=== PATIENT | male | born 1965 | race Caucasian/White ===

== ENCOUNTER → 2017-11-04 | Outpatient (CLI) | payer OTHER ==
[2017-11-07 00:06] LABS: D002-IGE D FARINAE MITE 0.17 kU/L (Class 0/I); E001-IGE CAT EPITHELIUM/DANDER <0.10 kU/L (Class 0); E005-IGE DOG DANDER/HAIR/EPITH <0.10 kU/L (Class 0); E070-IGE GOOSE FEATHERS <0.10 kU/L (Class 0); F088-IGE LAMB 0.13 kU/L (Class 0/I); G001-IgE Sweet Vernal <0.10 kU/L (Class 0); G003-IGE ORCHARD GRASS <0.10 kU/L (Class 0); G006-IGE TIMOTHY GRASS <0.10 kU/L (Class 0); G008-IGE BLUEGRASS, KENTUCKY <0.10 kU/L (Class 0); M002-IGE CLADOSPORIUM herbarum <0.10 kU/L (Class 0); M003-IGE ASPERGILLUS fumigatus <0.10 kU/L (Class 0); M003-IGE D pteronyssinus 0.12 kU/L (Class 0/I); M006-IGE ALTERNARIA alternata <0.10 kU/L (Class 0); MOO5-IGE CANDIDA albican 1.18 kU/L (Class II); T001-IGE MAPLE/BOX ELDER <0.10 kU/L (Class 0); T003-IGE COMMON SILVER BIRCH <0.10 kU/L (Class 0); T005-IGE BEECH (AMERICAN) <0.10 kU/L (Class 0); T007-IGE OAK, WHITE <0.10 kU/L (Class 0); T012-IGE WILLOW <0.10 kU/L (Class 0); T014-IGE COTTONWOOD <0.10 kU/L (Class 0); W003-IGE RAGWEED, GIANT <0.10 kU/L (Class 0); W008-IgE DANDELION <0.10 kU/L (Class 0); W009-IGE PLANTAIN,ENGLISH <0.10 kU/L (Class 0); W012-IGE GOLDENROD <0.10 kU/L (Class 0); W013-IgE COCKLEBUR <0.10 kU/L (Class 0)
== END ==
LOC: M LAB 10:46
DX: J30.9 Allergic rhinitis, unspecified (principal)
CPT/HCPCS: 82785

== ENCOUNTER 2018-05-10 14:05 | Emergency (ER) | payer OTHER ==
[~2018-05-10] VITALS: Ht 185.4 cm; Wt 84.1 kg
[~2018-05-10 14:05] MED LIST: ASPI81TA85 PO; COLA50CA3 PO; FLAG500T PO; FLUTISP; PERC7.5T12 PO
[2018-05-10 14:55] LABS: INFLUENZA A AMPLIFICATION POSITIVE (NEGATIVE); INFLUENZA B AMPLIFICATION NEGATIVE (NEGATIVE)
[2018-05-10] MEDS ORDERED: OSEL75CA PO (16:28)
[2018-05-10] MEDS ORDERED: ONDA4TAB6 PO (16:28)
[2018-05-10] MEDS ORDERED: ONDANSETRON 4 MG ORAL DISINTEGRATING TAB (Q0162 PER 1MG) PO ONE (16:30)
[2018-05-10] MEDS ORDERED: ACETAMINOPHEN 325 MG TAB PO ONE (16:30)
[2018-05-10 16:35] VITALS: BP 158/80
== END 2018-05-10 16:39 | disposition home or self-care (01) ==
LOC: M ED 14:05
DX: J09.X2 Influenza due to identified novel influenza A virus with other respiratory manifestations (principal); F41.9 Anxiety disorder, unspecified; F32.9 Major depressive disorder, single episode, unspecified; M19.90 Unspecified osteoarthritis, unspecified site; Z88.8 Allergy status to other drugs, medicaments and biological substances; Z91.030 Bee allergy status; Z79.899 Other long term (current) drug therapy
CPT/HCPCS: 87502; 99283; Q0162

== ENCOUNTER 2020-11-23 23:55 | Emergency (ER) | payer OTHER ==
[~2020-11-23] VITALS: Ht 182.9 cm; Wt 105.7 kg
[~2020-11-23 23:55] MED LIST changes: +FLUT1SPR2; -FLUTISP; +ONDA4TAB6 PO; +OSEL75CA PO
[2020-11-24] MEDS ORDERED: ACET-683 PO (00:21)
[2020-11-24 01:08] LABS: HEMATOCRIT 44.1 % (42.0-52.0); HEMOGLOBIN 14.8 g/dl (13.5-17.5); MEAN CORPUSCULAR HEMOGLOBIN 30.1 pg (27.0-33.0); MEAN CORPUSCULAR HGB CONC 33.6 g/dl (32.0-36.5); MEAN CORPUSCULAR VOLUME 89.6 fl (80.0-96.0); PLATELET COUNT, AUTOMATED 268 10^3/uL (150-450); RED BLOOD COUNT 4.92 10^6/uL (4.30-6.10); WHITE BLOOD COUNT 10.8 10^3/uL (4.0-10.0)
[2020-11-24 02:16] LABS: ACETAMINOPHEN LEVEL < 2.0 UG/ML (10.0-30.0); ALBUMIN 4.2 GM/DL (3.2-5.2); ALT/SGPT 41 U/L (12-78); BILIRUBIN,DIRECT 0.2 MG/DL (0.0-0.2); BLOOD UREA NITROGEN 12 MG/DL (7-18); CALCIUM LEVEL 9.1 MG/DL (8.5-10.1); CARBON DIOXIDE LEVEL 30 MEQ/L (21-32); CHLORIDE LEVEL 100 MEQ/L (98-107); CREATININE FOR GFR 0.93 MG/DL (0.70-1.30); ETHYL ALCOHOL (ETHANOL) < 0.003 % (0.000-0.010); GLOMERULAR FILTRATION RATE > 60.0 (>56); GLUCOSE, FASTING 112 MG/DL (70-100); POTASSIUM SERUM 3.6 MEQ/L (3.5-5.1); SALICYLATE LEVEL < 1.7 MG/DL (5.0-30.0); SODIUM LEVEL 136 MEQ/L (136-145); TOTAL PROTEIN 7.7 GM/DL (6.4-8.2)
[2020-11-24 02:42] LABS: AMPHETAMINES LEVEL URINE NEGATIVE (NEGATIVE); BARBITURATES URINE NEGATIVE (NEGATIVE); BENZODIAZEPINES URINE NEGATIVE (NEGATIVE); CANNABINOIDS URINE NEGATIVE (NEGATIVE); COCAINE METABOLITE URINE NEGATIVE (NEGATIVE); METHADONE URINE NEGATIVE (NEGATIVE); OPIATES URINE NEGATIVE (NEGATIVE); PHENCYCLIDINE URINE NEGATIVE (NEGATIVE)
[2020-11-24 05:11] LABS: RSV AMPLIFICATION NEGATIVE (NEGATIVE)
[2020-11-24 18:34] VITALS: BP 140/90
--- NOTE | 2020-11-26 16:35 | ECGEPIP ---
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
== END 2020-11-24 18:36 ==
LOC: M ED 23:55
DX: R45.851 Suicidal ideations (principal); F32.9 Major depressive disorder, single episode, unspecified; F41.9 Anxiety disorder, unspecified; K21.9 Gastro-esophageal reflux disease without esophagitis; Z88.6 Allergy status to analgesic agent; Z88.8 Allergy status to other drugs, medicaments and biological substances; Z91.030 Bee allergy status

== ENCOUNTER 2020-11-30 19:16 | Inpatient (IN) | payer MEDICAID, OTHER ==
[~2020-11-30] VITALS: Ht 182.9 cm; Wt 104.2 kg
[~2020-11-30 19:16] MED LIST changes: +ACET-683 PO
[2020-11-30] MEDS ORDERED: BUPR150T12 PO (19:53)
[2020-11-30 20:26] LABS: HEMATOCRIT 45.8 % (42.0-52.0); HEMOGLOBIN 14.8 g/dl (13.5-17.5); MEAN CORPUSCULAR HEMOGLOBIN 29.2 pg (27.0-33.0); MEAN CORPUSCULAR HGB CONC 32.3 g/dl (32.0-36.5); MEAN CORPUSCULAR VOLUME 90.3 fl (80.0-96.0); PLATELET COUNT, AUTOMATED 305 10^3/uL (150-450); RED BLOOD COUNT 5.07 10^6/uL (4.30-6.10); WHITE BLOOD COUNT 9.7 10^3/uL (4.0-10.0)
[2020-11-30 20:54] LABS: AMPHETAMINES LEVEL URINE NEGATIVE (NEGATIVE); BARBITURATES URINE NEGATIVE (NEGATIVE); BENZODIAZEPINES URINE NEGATIVE (NEGATIVE); CANNABINOIDS URINE NEGATIVE (NEGATIVE); COCAINE METABOLITE URINE NEGATIVE (NEGATIVE); METHADONE URINE NEGATIVE (NEGATIVE); OPIATES URINE NEGATIVE (NEGATIVE); PHENCYCLIDINE URINE NEGATIVE (NEGATIVE)
[2020-11-30 21:11] LABS: ACETAMINOPHEN LEVEL < 2.0 UG/ML (10.0-30.0); ALBUMIN 4.3 GM/DL (3.2-5.2); ALT/SGPT 36 U/L (12-78); BILIRUBIN,DIRECT 0.2 MG/DL (0.0-0.2); BILIRUBIN,TOTAL 0.7 MG/DL (0.2-1.0); BLOOD UREA NITROGEN 11 MG/DL (7-18); CARBON DIOXIDE LEVEL 29 MEQ/L (21-32); CHLORIDE LEVEL 103 MEQ/L (98-107); CREATININE FOR GFR 0.93 MG/DL (0.70-1.30); ETHYL ALCOHOL (ETHANOL) < 0.003 % (0.000-0.010); GLOMERULAR FILTRATION RATE > 60.0 (>56); GLUCOSE, FASTING 100 MG/DL (70-100); POTASSIUM SERUM 4.2 MEQ/L (3.5-5.1); SALICYLATE LEVEL < 1.7 MG/DL (5.0-30.0); SODIUM LEVEL 137 MEQ/L (136-145); TOTAL PROTEIN 8.3 GM/DL (6.4-8.2)
[2020-11-30] MEDS ORDERED: HOME MED LIST COMPLETE! XX SCH (23:15)
[2020-12-01] MEDS ORDERED: MAALOX 30 ML SUSP *UDC PO PRN (00:10)
[2020-12-01] MEDS ORDERED: MOM 30ML SUSPENSION UDC PO PRN (00:10)
[2020-12-01] MEDS ORDERED: traZODone 50 MG TAB PO PRN (00:10)
[2020-12-01 01:12] LABS: RSV AMPLIFICATION NEGATIVE (NEGATIVE)
[2020-12-01] MEDS ORDERED: METAL LOCK LOOP XX ONE (02:40)
[2020-12-01 02:52] VITALS: BP 142/95
[2020-12-01] MEDS: ACETAMINOPHEN TAB 650MG DOSE (2X325MG) PO PRN ×2 (08:21→22:26)
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
[2020-12-01 18:31] VITALS: BP 134/67
[2020-12-01 18:36] VITALS: BP 143/83
[2020-12-02 06:37] VITALS: BP 137/77
[2020-12-02] MEDS: ACETAMINOPHEN TAB 650MG DOSE (2X325MG) PO PRN ×2 (10:22→21:14)
[2020-12-02] MEDS: FLUoxetine 20 MG CAP PO SCH (10:41)
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
[2020-12-02 17:59] VITALS: BP 120/88
[2020-12-03 06:13] VITALS: BP 139/66
[2020-12-03] MEDS: FLUoxetine 20 MG CAP PO SCH (08:11)
[2020-12-03] MEDS: ACETAMINOPHEN TAB 650MG DOSE (2X325MG) PO PRN ×2 (08:12→21:05)
[2020-12-03 16:25] VITALS: BP 138/90
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
[2020-12-04 06:21] VITALS: BP 133/68
[2020-12-04] MEDS: FLUoxetine 20 MG CAP PO SCH (08:20)
[2020-12-04] MEDS: ACETAMINOPHEN TAB 650MG DOSE (2X325MG) PO PRN ×2 (08:24→20:32)
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
[2020-12-04 16:23] VITALS: BP 130/81
[2020-12-05 07:08] VITALS: BP 148/83
[2020-12-05] MEDS: FLUoxetine 20 MG CAP PO SCH (08:20)
[2020-12-05] MEDS: ACETAMINOPHEN TAB 650MG DOSE (2X325MG) PO PRN ×2 (08:20→20:46)
[2020-12-05] MEDS: hydrOXYzine 50 MG TAB PO SCH ×2 (11:57→17:46)
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
[2020-12-05 16:25] VITALS: BP 130/70
[2020-12-06] MEDS: hydrOXYzine 50 MG TAB PO SCH ×5 (05:35→23:18)
[2020-12-06 07:14] VITALS: BP 162/98
[2020-12-06] MEDS: FLUoxetine 20 MG CAP PO SCH (08:46)
[2020-12-06] MEDS: ACETAMINOPHEN TAB 650MG DOSE (2X325MG) PO PRN ×2 (08:48→20:48)
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
[2020-12-06 18:05] VITALS: BP 140/92
[2020-12-06 20:58] VITALS: BP 140/92
[2020-12-07] MEDS: hydrOXYzine 50 MG TAB PO SCH (05:31)
[2020-12-07 06:41] VITALS: BP 155/91
[2020-12-07] MEDS: FLUoxetine 20 MG CAP PO SCH (08:54)
[2020-12-07] MEDS: ACETAMINOPHEN TAB 650MG DOSE (2X325MG) PO PRN (08:55)
[2020-12-07] MEDS ORDERED: FLUO20CA22 PO (08:59)
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
== END 2020-12-07 10:13 | disposition home or self-care (01) | DRG 754 ==
LOC: M ED 19:16 → M ED INP 12-01 00:10 → M PSY 12-01 01:45
PROVIDERS: ADMIT Psychiatry & Neurology Child & Adolescent Psychiatry; ATTEND Psychiatry & Neurology Psychiatry
DX: F43.21 Adjustment disorder with depressed mood (principal); F60.3 Borderline personality disorder; F60.2 Antisocial personality disorder; Z63.5 Disruption of family by separation and divorce; Z63.8 Other specified problems related to primary support group; Z79.82 Long term (current) use of aspirin; Z79.899 Other long term (current) drug therapy; Z91.030 Bee allergy status; Z20.822 Contact with and (suspected) exposure to COVID-19; Z76.5 Malingerer [conscious simulation]

== ENCOUNTER 2020-12-08 03:52 | Inpatient (IN) | payer MEDICAID, OTHER ==
[~2020-12-08] VITALS: Ht 165.1 cm; Wt 104.1 kg
[~2020-12-08 03:52] MED LIST changes: +BUPR150T12 PO; +FLUO20CA22 PO
[2020-12-08] MEDS ORDERED: ACETAMINOPHEN TAB 650MG DOSE (2X325MG) PO ONE (10:35)
[2020-12-08] MEDS ORDERED: traZODone 50 MG TAB PO PRN (11:10)
[2020-12-08] MEDS ORDERED: MOM 30ML SUSPENSION UDC PO PRN (11:10)
[2020-12-08] MEDS ORDERED: hydrOXYzine 50 MG TAB PO PRN (11:10)
[2020-12-08] MEDS ORDERED: MAALOX 30 ML SUSP *UDC PO PRN (11:10)
[2020-12-08 11:55] LABS: HEMOGLOBIN 13.9 g/dl (13.5-17.5); MEAN CORPUSCULAR HEMOGLOBIN 29.1 pg (27.0-33.0); MEAN CORPUSCULAR HGB CONC 32.3 g/dl (32.0-36.5); MEAN CORPUSCULAR VOLUME 90.1 fl (80.0-96.0); PLATELET COUNT, AUTOMATED 264 10^3/uL (150-450); RED BLOOD COUNT 4.77 10^6/uL (4.30-6.10); WHITE BLOOD COUNT 10.2 10^3/uL (4.0-10.0)
[2020-12-08 12:21] LABS: AMPHETAMINES LEVEL URINE NEGATIVE (NEGATIVE); BARBITURATES URINE NEGATIVE (NEGATIVE); BENZODIAZEPINES URINE NEGATIVE (NEGATIVE); CANNABINOIDS URINE NEGATIVE (NEGATIVE); COCAINE METABOLITE URINE NEGATIVE (NEGATIVE); METHADONE URINE NEGATIVE (NEGATIVE); OPIATES URINE NEGATIVE (NEGATIVE); PHENCYCLIDINE URINE NEGATIVE (NEGATIVE)
[2020-12-08 12:27] LABS: RSV AMPLIFICATION NEGATIVE (NEGATIVE)
[2020-12-08 12:32] LABS: ACETAMINOPHEN LEVEL < 2.0 UG/ML (10.0-30.0); ALBUMIN 3.7 GM/DL (3.2-5.2); ALT/SGPT 27 U/L (12-78); BILIRUBIN,DIRECT 0.1 MG/DL (0.0-0.2); BILIRUBIN,TOTAL 0.6 MG/DL (0.2-1.0); BLOOD UREA NITROGEN 11 MG/DL (7-18); CALCIUM LEVEL 8.9 MG/DL (8.5-10.1); CARBON DIOXIDE LEVEL 29 MEQ/L (21-32); CHLORIDE LEVEL 104 MEQ/L (98-107); CREATININE FOR GFR 0.87 MG/DL (0.70-1.30); ETHYL ALCOHOL (ETHANOL) < 0.003 % (0.000-0.010); GLOMERULAR FILTRATION RATE > 60.0 (>56); GLUCOSE, FASTING 133 MG/DL (70-100); POTASSIUM SERUM 4.1 MEQ/L (3.5-5.1); SALICYLATE LEVEL < 1.7 MG/DL (5.0-30.0); SODIUM LEVEL 139 MEQ/L (136-145); TOTAL PROTEIN 7.5 GM/DL (6.4-8.2)
[2020-12-08] MEDS ORDERED: HOME MED LIST COMPLETE! XX SCH (14:30)
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
[2020-12-08] MEDS: ACETAMINOPHEN TAB 650MG DOSE (2X325MG) PO PRN (21:55)
[2020-12-09 06:53] VITALS: BP 129/68
[2020-12-09] MEDS: FLUoxetine 20 MG CAP PO SCH (11:01)
[2020-12-09] MEDS: ACETAMINOPHEN TAB 650MG DOSE (2X325MG) PO PRN ×2 (11:13→21:15)
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
[2020-12-09 16:23] VITALS: BP 143/82
[2020-12-10] MEDS: FLUoxetine 20 MG CAP PO SCH (09:48)
[2020-12-10] MEDS: ACETAMINOPHEN TAB 650MG DOSE (2X325MG) PO PRN ×2 (09:50→21:09)
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
[2020-12-10 18:07] VITALS: BP 116/80
[2020-12-11 06:00] VITALS: BP 154/85
[2020-12-11] MEDS: FLUoxetine 20 MG CAP PO SCH (09:11)
[2020-12-11] MEDS: ACETAMINOPHEN TAB 650MG DOSE (2X325MG) PO PRN ×2 (09:13→20:49)
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
[2020-12-11 17:25] VITALS: BP 144/80
[2020-12-12 06:47] VITALS: BP 142/92
[2020-12-12] MEDS: ACETAMINOPHEN TAB 650MG DOSE (2X325MG) PO PRN ×2 (08:53→21:00)
[2020-12-12] MEDS: FLUoxetine 20 MG CAP PO SCH (08:54)
[2020-12-12 16:04] VITALS: BP 147/79
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
[2020-12-13 06:41] VITALS: BP 156/81
[2020-12-13] MEDS: FLUoxetine 20 MG CAP PO SCH (08:54)
[2020-12-13] MEDS: ACETAMINOPHEN TAB 650MG DOSE (2X325MG) PO PRN ×2 (08:55→20:37)
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
[2020-12-13 18:57] VITALS: BP 126/81
[2020-12-14 06:39] VITALS: BP 143/76
[2020-12-14] MEDS: ACETAMINOPHEN TAB 650MG DOSE (2X325MG) PO PRN ×2 (08:19→21:27)
[2020-12-14] MEDS: FLUoxetine 20 MG CAP PO SCH (08:20)
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
[2020-12-14 18:22] VITALS: BP 133/63
[2020-12-15 06:00] VITALS: BP 136/92
[2020-12-15] MEDS: ACETAMINOPHEN TAB 650MG DOSE (2X325MG) PO PRN ×2 (09:30→22:07)
[2020-12-15] MEDS: FLUoxetine 20 MG CAP PO SCH (09:30)
[2020-12-15 19:05] VITALS: BP 130/72
[2020-12-16 06:00] VITALS: BP 130/82
[2020-12-16] MEDS: FLUoxetine 20 MG CAP PO SCH (09:26)
[2020-12-16] MEDS: ACETAMINOPHEN TAB 650MG DOSE (2X325MG) PO PRN ×2 (09:26→21:40)
[2020-12-16 18:34] VITALS: BP 137/88
[2020-12-17 06:14] VITALS: BP 166/90
[2020-12-17] MEDS: FLUoxetine 20 MG CAP PO SCH (09:20)
[2020-12-17] MEDS: ACETAMINOPHEN TAB 650MG DOSE (2X325MG) PO PRN ×2 (09:20→21:46)
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
[2020-12-17 16:26] VITALS: BP 134/73
[2020-12-18 05:57] VITALS: BP 153/86
[2020-12-18] MEDS: FLUoxetine 20 MG CAP PO SCH (09:31)
[2020-12-18] MEDS: ACETAMINOPHEN TAB 650MG DOSE (2X325MG) PO PRN ×2 (09:39→22:00)
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
[2020-12-18 16:09] VITALS: BP 137/78
[2020-12-19 06:46] VITALS: BP 152/92
[2020-12-19] MEDS: FLUoxetine 20 MG CAP PO SCH (09:23)
[2020-12-19] MEDS: ACETAMINOPHEN TAB 650MG DOSE (2X325MG) PO PRN ×2 (09:24→23:15)
--- NOTE | 2020-12-19 15:56 | MHIPNPDOC ---
[facility] Progress Note Progress Note Date of Service: 12/19/20 HISTORY: Patient is a 55 year old Single, Unemployed/Disabled, Domiciled, Male who was admitted and discharged on Thursday but returned over the weekend, reporting suicidal ideations. Patient has not reported suicidal gestures or attempts and stated on his last admission that he was not depressed prior to his arrest for assaulting his girlfriend. On this occurrence, reports that he wants to work on his "guilt, depression, suicidal thoughts, the thoughts of killing myself." VITAL SIGNS: See below. CURRENT MEDICATIONS: See below. MENTAL STATUS EXAMINATION: Patient is a 55 year old Single, Unemployed/Disabled, Domiciled, Male who was admitted and discharged on Thursday but returned over the weekend, reporting suicidal ideations. Speech: Is fluid, conversant, normal rate, tone and volume, repetitive themes, mildly tangential Language skills are intact Thought processes including: linear and goal oriented Thought content: reports depression and anxiety. Reports intrusive suicidal ideation, and now complains of command hallucinations to kill himself. Patient does not appear to have clear intent. States "I think about suicide and wanting to kill myself. Abstract reasoning, and computation: fair Description of associations: denies, none observed Description of abnormal or psychotic thoughts: denies, none observed. Judgment: fair Insight: fair, ruminative, perseverates Orientation: alert and oriented to person, place, time and situation Recent and remote memory: intact Attention span and concentration: good Language: expansive Fund of knowledge: average Mood: reports "I am depressed and I am still suicidal" Affect: constricted in the interview- incongruent with overall observations by staff and provider DIAGNOSES: Adjustment disorder Malingering Narcissistic Personality Disorder Borderline Personality Disorder rule out Factitious Disorder rule out illness anxiety disorder rule out somatic symptom disorder rule antisocial personality disorder ASSESSMENT: Patient seen in the presence of ANNALEE Landry. Patient is currently reporting that he has command hallucinations that are telling him to kill himself. He then asked his room mate to watch him while he showered. Patient appears to be manipulating and elevating his symptoms in order to lengthen his stay in the hospital. Patient prescribed Risperdal 0.5 mg for his new symptoms of auditory hallucinations. He states that he does not want any thing that will cause him to gain weight. Provider reinforced that the benefits outweigh the risks because he is reporting severe command hallucinations that are telling him to kill himself that his risk of weight gain is minimal at this time. Patient has been inappropriate with female peers as reported by other patients and staff has reinforced with him that his inappropriateness towards female peers is prohibited. Patient becomes frustrated and states, "Why are people lying about me? I haven't done anything? I was just telling her that if she wants to go to the movies or something I would go with her." Reinforced with patient that his planning to meet with another patient is highly improper. Provider encourages patient to be truthful and honest as he is observed to be exaggerating, and overinflating his symptoms in order to 1) stay in the hospital until charges are dropped against him. 2) avoid court 3) have his family believe that he needed a longer hospitalization as he is reporting to them his continued suicidal thoughts which appear quite insincere and feigned. When patient talked about his sister lying about his secondary gain to stay in the hospital, provider asked patient to call his sister to corroborate his story. He refused. Patient also appears to exaggerate somatic colon pain, as he is in the day room active, participating and social. He states, "I have been crying in my sleep. I have cried in front of people. I cry at night" Reviewed with patient that much of his crying has been insincere and artificial. He does not cry with actual tears and he does this on command. Patient is argumentative and opp osition in the interview. Patient maintains a hypervigilant stare and is not observed depressed, anxious, psychotic, manic or delusional. He is quite ruminative and grandiose. PER RN Patient states that not ready for d/c and when he leaves he will commit suicide, although he doesn't want to because it "will kill my mother." I have reinforced with the patient my assessment and treatment recommendations with the patient. I see no evidence of severe psychosis, cognitive impairment, intoxication, or other condition that prevents the patient from acting under his own choice and volition. I have counseled the patient again that he retains the ability to not kill himself, and that this his ultimately his choice and of his own volition. I have counseled this patient daily and multiple times that a decision to end his life is ultimately his responsibility. He is seen however observed in the milieu, social with peer, participating in groups and is not withdrawn, isolative or perceived to be depressed. His reports of depression and anxiety and now auditory hallucinations are incongruent to observations by staff. Much of the things that patient is working on can be done on an intensive outpatient basis. Patient is refusing to be discharged although the treatment team feel that he has stabilized and at his baseline. He continues to state "if I am discharged, I will kill myself." Much of his report of suicidality is not congruent with the observations of his behaviors on the unit. MANAGEMENT PLAN: Pt can be discharged on or Thursday. Will ask second provider to evaluate patient TIME SPENT: 25 minutes. Patient was interviewed with ANNALEE Moreno Vital Signs Vital Signs Date Time Temp Pulse Resp B/P (MAP) Pulse Ox O2 Delivery O2 Flow Rate FiO2 12/19/20 06:46 98.2 77 18 152/92 (112) 98 Room Air Current Medications Current Medications Medications (Trade) Dose Ordered Sig/Lauren Route PRN Reason Start Time Stop Time Status Last Admin Dose Admin Acetaminophen (Tylenol Tab) 650 mg Q6HP PRN PO HEADACHE or MILD DISCOMFORT 12/08/20 11:10 12/19/20 09:24 Al Hydrox/Mg Hydrox/Simethicone (Mylanta) 30 ml Q4HP PRN PO HEARTBURN/INDIGESTION 12/08/20 11:10 Fluoxetine HCl (PROzac) 20 mg QAM PO 12/09/20 09:00 12/14/20 13:06 DC 12/14/20 08:20 Fluoxetine HCl (PROzac) 40 mg DAILY PO 12/15/20 09:00 12/19/20 09:23 Home Med (Home Med List Complete!) ASDIRECTED XX 12/08/20 14:30 12/08/20 14:35 DC Hydroxyzine HCl (Atarax) 50 mg Q6HP PRN PO ANXIETY/AGITATION 12/08/20 11:10 Magnesium Hydroxide (Milk Of Magnesia) 30 ml DAILYPRN PRN PO CONSTIPATION 12/08/20 11:10 Trazodone HCl (Desyrel) 50 mg QHSP PRN PO INSOMNIA 12/08/20 11:10 Allergies Coded Allergies: aspirin (Verified Allergy, Unknown, 11/24/20) bee venom protein (honey bee) (Verified Allergy, Unknown, 11/24/20) bismuth subsalicylate (Verified Allergy, Unknown, 11/24/20) salicylates (Verified Allergy, Unknown, 11/24/20) ARTHUR JOAQUIN NP Dec 19, 2020 14:30
[2020-12-19 16:16] VITALS: BP 145/90
[2020-12-19] MEDS: risperiDONE 0.5 MG TAB PO SCH (23:15)
[2020-12-20 07:08] VITALS: BP 143/79
[2020-12-20] MEDS: FLUoxetine 20 MG CAP PO SCH (09:42)
[2020-12-20] MEDS: risperiDONE 0.5 MG TAB PO SCH (09:43)
[2020-12-20] MEDS: ACETAMINOPHEN TAB 650MG DOSE (2X325MG) PO PRN (09:47)
[2020-12-20] MEDS ORDERED: FLUO20CA22 PO (11:22)
[2020-12-20] MEDS ORDERED: RISP-7 PO (11:22)
--- NOTE | 2020-12-20 13:48 | MHIPNPDOC ---
[facility] Progress Note Progress Note DATE OF SERVICE: 12/20/20 HISTORY: See H&P Interval: Was asked by primary provider for a second opinion as patient reports variety of new psychiatric symptoms and history that he did not report on previous admission, including history of trauma, hearing demon voices and reporting psychotic symptoms. Patient was interviewed in a private interview room. During interview reports having multiple methods of suicidal ideation including wanting to cut himself on the wrist, overdose on pills, stabbed himself in the chest and a knife. Report least 6 or 8 different methods that he had not previously reported, stating that he had had these thoughts for extended period of time prior to his previous admissions. During the interview when discussing the demons voice states is there 24- and during the interview said that the voices telling him to stab himself. When asked about the demon voice being something new that he had never previously been reported, despite him stating it was at been there for years, changed his story reporting that "actually it's not a demon voice its a voice I cannot recognize". During multiple parts of the interview, changes story when questioned. When asked if he had a consistent suicidal plan with intent as a prime reporting suicidal ideations for extended period of time states " he had to cut myself with a knife, but I do not have a knife". When asking him if that this reduces his chance of suicidal behavior states "actually all long it's actually been a plan to overdose on many medications", but does not discuss any specific medications he is thought about. During the course of interview his story kept changing, details were pointed out to him for being incongruent and he changed her story multiple times. When interview was about and, patient states I have this internal problem with movements and had been shaking all the time. When it was noted that he did not appear to have any shakiness when sitting he then took his hands out and started shaking voluntarily shaking them to me in front of his face in a controlled fashion, and continued to shake his arms when sitting. During the course of interview he also pointed out some goal oriented behavior, stating that he is waiting for his insurance to be accepted so that he can follow-up with treatment, despite earlier in the interview stating he was hopeless and had no goals or plans to seek treatment when leaving the hospital. He also reported that he had new onset PTSD symptoms from the past traumas which she could not elaborate on, he did not report externalizing previous admissions. When asked about psychiatric symptoms he endorsed all symptoms of depression, psychosis, other psychiatric conditions including bipolar disorder, panic disorder. VITAL SIGNS: See below. NEW TEST RESULTS: See primary evaluation CURRENT MEDICATIONS: See below. MENTAL STATUS EXAMINATION: Patient is a 50-year old male, who is sitting calmly in a chair, appears stated age, with delarosa hair in ponytail, good eye contact, fair hygiene Speech: Is normal Language skills are intact Thought processes including: Linear Thought content: Preoccupied with physical complaints including GI disturbances, shakiness, pains in various parts of his body without explanation. Abstract reasoning, and computation: Normal description of associations: Normal Description of abnormal or psychotic thoughts: Does not appear to be responding to internal stimuli, does not appear disorganized, reports hearing demon and tells me that his trying to harm him when asked about auditory hallucinations, reports auditory hallucinations are there 24-7 Judgment: Fair Insight: Fair Orientation: X3, baseline Recent and remote memory: Intact Attention span and concentration: Good Language: [place]. Fund of knowledge: Average Mood: "Very depressed and suicidal" affect: Euthymic, full, mood incongruent, appropriate DIAGNOSES: Based on chart review, interview: Adjustment disorder Malingering Narcissistic Personality Disorder Borderline Personality Disorder rule out Factitious Disorder rule out illness anxiety disorder rule out somatic symptom disorder rule antisocial personality disorder ASSESSMENT: There is a high suspicion for malingering due to multiple inconsist encies with regards to discussing suicidal thoughts and psychotic symptoms. We will also rule out other disorders such as somatic symptom disorder, factitious disorder, illness anxiety disorder, patient needs further evaluation for possible personality disorder. patient reports incongruent psychiatric symptoms to presentation and interview. Per nursing staff patient has also been displaying inappropriate behavior towards other patients. MANAGEMENT PLAN: Deferred to primary provider, unclear if inpatient inpatient admission is warranted at this time due to high suspicion for malingering, risk of inappropriate behavior towards other patients. TIME SPENT: 20 minutes. Vital Signs Vital Signs Date Time Temp Pulse Resp B/P (MAP) Pulse Ox O2 Delivery O2 Flow Rate FiO2 12/20/20 07:08 97.6 93 97 143/79 (100) 14 Room Air Current Medications Current Medications Medications (Trade) Dose Ordered Sig/Lauren Route PRN Reason Start Time Stop Time Status Last Admin Dose Admin Acetaminophen (Tylenol Tab) 650 mg Q6HP PRN PO HEADACHE or MILD DISCOMFORT 12/08/20 11:10 12/20/20 13:18 DC 12/20/20 09:47 Al Hydrox/Mg Hydrox/Simethicone (Mylanta) 30 ml Q4HP PRN PO HEARTBURN/INDIGESTION 12/08/20 11:10 12/20/20 13:18 DC Fluoxetine HCl (PROzac) 20 mg QAM PO 12/09/20 09:00 12/14/20 13:06 DC 12/14/20 08:20 Fluoxetine HCl (PROzac) 40 mg DAILY PO 12/15/20 09:00 12/20/20 13:18 DC 12/20/20 09:42 Home Med (Home Med List Complete!) ASDIRECTED XX 12/08/20 14:30 12/08/20 14:35 DC Hydroxyzine HCl (Atarax) 50 mg Q6HP PRN PO ANXIETY/AGITATION 12/08/20 11:10 12/20/20 13:18 DC Magnesium Hydroxide (Milk Of Magnesia) 30 ml DAILYPRN PRN PO CONSTIPATION 12/08/20 11:10 12/20/20 13:18 DC Risperidone (RisperDAL) 0.5 mg BID PO 12/19/20 21:00 12/20/20 13:18 DC 12/20/20 09:43 Trazodone HCl (Desyrel) 50 mg QHSP PRN PO INSOMNIA 12/08/20 11:10 12/20/20 13:18 DC Allergies Coded Allergies: aspirin (Verified Allergy, Unknown, 11/24/20) bee venom protein (honey bee) (Verified Allergy, Unknown, 11/24/20) bismuth subsalicylate (Verified Allergy, Unknown, 11/24/20) salicylates (Verified Allergy, Unknown, 11/24/20) VANDANA JOHNSTON MD Dec 20, 2020 13:48
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
== END 2020-12-20 12:15 | disposition home or self-care (01) | DRG 754 ==
LOC: M ED 03:52 → M ED INP 11:16 → M PSY 13:30
PROVIDERS: ADMIT Student in an Organized Health Care Education/Training Program; ATTEND Psychiatry & Neurology Psychiatry
DX: F43.21 Adjustment disorder with depressed mood (principal); F45.1 Undifferentiated somatoform disorder; Z76.5 Malingerer [conscious simulation]; Z88.6 Allergy status to analgesic agent; Z88.8 Allergy status to other drugs, medicaments and biological substances; Z91.030 Bee allergy status; F60.81 Narcissistic personality disorder; F60.3 Borderline personality disorder; F60.2 Antisocial personality disorder; Z62.810 Personal history of physical and sexual abuse in childhood; Z79.899 Other long term (current) drug therapy

== ENCOUNTER 2020-12-20 14:54 | Emergency (ER) | payer MEDICAID, OTHER ==
[~2020-12-20] VITALS: Ht 182.9 cm; Wt 104.1 kg
[~2020-12-20 14:54] MED LIST changes: +RISP-7 PO
[2020-12-20 17:05] VITALS: BP 152/87
== END 2020-12-20 17:07 | disposition home or self-care (01) ==
LOC: M ED 14:54
DX: R45.851 Suicidal ideations (principal); R44.0 Auditory hallucinations; F32.9 Major depressive disorder, single episode, unspecified; K21.9 Gastro-esophageal reflux disease without esophagitis; K57.92 Diverticulitis of intestine, part unspecified, without perforation or abscess without bleeding; Z79.899 Other long term (current) drug therapy